=== PATIENT | male | born 1975 | race Caucasian/White ===

== ENCOUNTER 2018-04-14 22:54 | Emergency (ER) | payer MEDICAID ==
[~2018-04-14] VITALS: Ht 172.7 cm; Wt 95.0 kg
[2018-04-14] MEDS ORDERED: OLANZAPINE 10 MG/VIAL IM STA (23:14)
[2018-04-14 23:33] LABS: BASOPHILS % 1.2 % (0.0-2.0); EOSINOPHILS % 0.7 % (0.0-5.0); HEMATOCRIT. 38.9 % (42.0-52.0); HEMOGLOBIN. 12.9 g/dL (14.0-18.0); LYMPHOCYTES % 46.3 % (20.0-50.0); MEAN CORPUSCULAR HEMOGLOBIN 30.1 pg (28.0-32.0); MEAN PLATELET VOLUME 7.5 fl (7.4-10.4); MONOCYTES % 5.8 % (2.0-8.0); PLATELET 278 x1000/uL (130-400); RED BLOOD CELL COUNT 4.28 mill/uL (4.7-6.1); RED CELL DISTRIBUTION WIDTH 15.3 % (11.6-14.6)
[2018-04-14 23:37] LABS: CHLORIDE 109 mEq/L (98-107)
[2018-04-14 23:54] LABS: ETHANOL BLOOD 443 mg/dL
[2018-04-15 02:31] LABS: CLARITY URINE CLEAR (CLEAR); COLOR URINE YELLOW (YELLOW); KETONES URINE NEGATIVE (NEGATIVE); LEUKOCYTE ESTERASE URINE NEGATIVE (NEGATIVE); NITRITE URINE NEGATIVE (NEGATIVE); OCCULT BLOOD URINE NEGATIVE (NEGATIVE); PH URINE 5.5 (4.5-8.0); PROTEIN URINE NEGATIVE (NEGATIVE); SPECIFIC GRAVITY URINE 1.006 (1.005-1.030); UROBILINOGEN URINE 0.2 E.U./dL (0.2-1.0)
[2018-04-15 02:45] LABS: *AMPHETAMINES SCREEN URINE NEGATIVE (NEGATIVE); *BARBITURATES SCREEN URINE NEGATIVE (NEGATIVE); *BENZODIAZEPINES SCREEN URINE NEGATIVE (NEGATIVE); *COCAINE SCREEN URINE NEGATIVE (NEGATIVE)
[2018-04-15 02:46] LABS: CANNABINOID URINE SCREEN PRESUMTIVE POSITIVE (NEGATIVE); METHADONE URINE SCREEN NEGATIVE (NEGATIVE); OPIATES URINE SCREEN NEGATIVE (NEGATIVE); PHENCYCLIDINE URINE SCREEN NEGATIVE (NEGATIVE)
[2018-04-15] MEDS ORDERED: SODIUM CHLORIDE 0.9% 1,000 ML IV ONE (08:06)
[2018-04-15] MEDS ORDERED: HALOPERIDOL LACTATE 5MG/ML VIAL IM ONE (08:30)
[2018-04-15] MEDS ORDERED: LORAZEPAM 2MG/ML CPJ IM ONE (08:30)
[2018-04-15 15:50] VITALS: BP 100/57
== END 2018-04-15 15:48 | disposition home or self-care (01) ==
LOC: ER 22:54 → EDBD 22:54 → ER 04-15 15:48
DX: F10.129 Alcohol abuse with intoxication, unspecified (principal); Y90.8 Blood alcohol level of 240 mg/100 ml or more
CPT/HCPCS: 36415; 80053; 80305; 81003; 85025; 96360; 96372; 99284; G0482; J1630; J2060; J3490; J7030; Z7610; A4315

== ENCOUNTER 2022-04-04 21:40 | Emergency (ER) | payer MEDICAID, OTHER ==
[~2022-04-04] VITALS: Ht 170.2 cm; Wt 100.0 kg
[2022-04-04] MEDS ORDERED: ZIPRASIDONE MESYLATE 20MG/VIAL IM STA (23:15)
[2022-04-04] MEDS ORDERED: MIDAZOLAM HCL 2 MG/2 ML VIAL IV STA (23:36)
[2022-04-05 00:33] LABS: EOSINOPHILS % 1.7 % (0.0-5.0); HEMATOCRIT. 43.9 % (42.0-52.0); HEMOGLOBIN. 14.4 g/dL (14.0-18.0); LYMPHOCYTES % 48.3 % (20.0-50.0); MEAN CORPUSCULAR HEMOGLOBIN 30.6 pg (28.0-32.0); MEAN CORPUSCULAR VOLUME 93.4 fL (80.0-94.0); MONOCYTES % 4.2 % (2.0-8.0); NEUTROPHILS % 44.8 % (40.0-76.0); PLATELET 288 x1000/uL (130-400); RED CELL DISTRIBUTION WIDTH 14.6 % (11.6-14.6)
[2022-04-05 01:38] LABS: CHLORIDE 111 mEq/L (98-107)
[2022-04-05 02:26] LABS: ETHANOL BLOOD 327 mg/dL
[2022-04-05 03:00] VITALS: BP 103/69
== END 2022-04-05 03:54 | disposition home or self-care (01) ==
LOC: ER 21:40
DX: F10.129 Alcohol abuse with intoxication, unspecified (principal); Y90.8 Blood alcohol level of 240 mg/100 ml or more
CPT/HCPCS: 36415; 80053; 80320; 82962; 85025; 96372; 96374; 99291; J2250; J3486; G0480

== ENCOUNTER 2023-02-03 06:00 | Emergency (ER) | payer MEDICAID, OTHER ==
[~2023-02-03] VITALS: Ht 170.2 cm; Wt 100.0 kg
[2023-02-03 06:03] VITALS: BP 160/100
== END 2023-02-03 12:44 | disposition left against medical advice (07) ==
LOC: ER 06:25
DX: Z53.21 Procedure and treatment not carried out due to patient leaving prior to being seen by health care provider (principal)
CPT/HCPCS: 99281

== ENCOUNTER 2023-12-20 13:59 | Emergency (ER) | payer OTHER ==
[~2023-12-20] VITALS: Ht 170.2 cm; Wt 99.0 kg
[2023-12-20 14:04] VITALS: O2SAT 99
[2023-12-20 15:47] LABS: BASOPHILS % 0.4 % (0.0-2.0); HEMATOCRIT. 46.2 % (42.0-52.0); HEMOGLOBIN. 15.2 g/dL (14.0-18.0); LYMPHOCYTES % 7.8 % (20.0-50.0); MEAN CORPUSCULAR HEMOGLOBIN 28.8 pg (28.0-32.0); MEAN CORPUSCULAR HGB CONC 32.9 g/dL (31.0-37.0); MEAN CORPUSCULAR VOLUME 87.4 fL (80.0-94.0); MEAN PLATELET VOLUME 8.1 fl (7.4-10.4); MONOCYTES % 5.3 % (2.0-8.0); NEUTROPHILS % 86.5 % (40.0-76.0); PLATELET 326 x1000/uL (130-400); RED BLOOD CELL COUNT 5.29 mill/uL (4.7-6.1); RED CELL DISTRIBUTION WIDTH 16.4 % (11.6-14.6); WHITE BLOOD COUNT 18.9 x1000/uL (4.5-11.0)
[2023-12-20 15:58] LABS: PROTHROMBIN TIME 11.1 sec (9.6-11.0)
[2023-12-20 16:05] LABS: ALANINE AMINOTRANSFERASE 18 IU/L (10-49); ALBUMIN 5.2 g/dL (3.2-4.8); ASPARTATE AMINOTRANSFERASE 30 IU/L (<34); CALCIUM 9.1 mg/dL (8.7-10.4); CARBON DIOXIDE 20 mEq/L (21-32); CHLORIDE 101 mEq/L (98-107); CREATININE 1.4 mg/dL (0.6-1.3); GLUCOSE 112 mg/dL (70-105); POTASSIUM 4.6 mEq/L (3.5-5.1); PROTEIN TOTAL 8.1 g/dL (6.0-8.3); SODIUM 132 mEq/L (136-145); UREA NITROGEN BLOOD 15 mg/dL (9-23)
[2023-12-20 16:12] LABS: ETHANOL BLOOD < 10 mg/dL (<10)
[2023-12-20 16:16] LABS: CLARITY URINE CLOUDY (CLEAR); COLOR URINE DARK YELLOW (YELLOW); GLUCOSE URINE NEGATIVE (NEGATIVE); KETONES URINE 2+ (NEGATIVE); LEUKOCYTE ESTERASE URINE NEGATIVE (NEGATIVE); NITRITE URINE NEGATIVE (NEGATIVE); OCCULT BLOOD URINE 2+ (NEGATIVE); PH URINE 5.5 (4.5-8.0); PROTEIN URINE 2+ (NEGATIVE); SPECIFIC GRAVITY URINE 1.026 (1.005-1.030)
[2023-12-20 16:26] LABS: *AMPHETAMINES SCREEN URINE PRESUMPTIVE POSITIVE (NEGATIVE); *BARBITURATES SCREEN URINE NEGATIVE (NEGATIVE); *BENZODIAZEPINES SCREEN URINE NEGATIVE (NEGATIVE); *COCAINE SCREEN URINE NEGATIVE (NEGATIVE); CANNABINOID URINE SCREEN PRESUMPTIVE POSITIVE (NEGATIVE); ECSTASY MDMA SCREEN URINE CONF.TEST INDICATED (NEGATIVE); METHADONE URINE SCREEN Neg (NEGATIVE); OPIATES URINE SCREEN NEGATIVE (NEGATIVE); PHENCYCLIDINE URINE SCREEN NEGATIVE (NEGATIVE)
[2023-12-20 16:34] LABS: BACTERIA URINE 1+; SQUAMOUS EPITHELIAL CELL URINE 1+ /lpf (RARE/1+); WBC URINE 0-2 /hpf (0-2)
[2023-12-20] MEDS: ONDANSETRON HCL 4MG/2ML INJ IV STA (17:39)
[2023-12-20] MEDS: SODIUM CHLORIDE 0.9% 1,000 ML IV ONE ×2 (17:39→19:09)
[2023-12-20 20:46] VITALS: BP 152/93; PULSE 90; RESP 20; TEMP 98
== END 2023-12-20 20:48 | disposition home or self-care (01) ==
LOC: ER 14:11
DX: F19.10 Other psychoactive substance abuse, uncomplicated (principal); R10.84 Generalized abdominal pain; R11.2 Nausea with vomiting, unspecified; I10 Essential (primary) hypertension; F17.200 Nicotine dependence, unspecified, uncomplicated; E11.9 Type 2 diabetes mellitus without complications
CPT/HCPCS: 80053; 80305; 81003; 80320; 83690; 85025; 85610; 36415; 71045; 74176; 93005; 96361; 96374; 99285; J2405; J7030; Z7610 ×3; G0480